=== PATIENT | male | born 1930 | race Caucasian/White ===

== ENCOUNTER 2016-07-06 21:31 | Observation (INO) | payer MEDICARE, OTHER ==
[~2016-07-06] VITALS: Ht 180.3 cm; Wt 75.3 kg
[2016-07-06 22:19] LABS: HEMOGLOBIN 12.5 gm/dl (14.0-17.5); RED BLOOD COUNT 3.92 M/UL (4.20-5.50); WHITE BLOOD COUNT 10.5 K/UL (4.5-11.0)
[2016-07-06 22:38] LABS: BUN/CREATININE RATIO 11 (0-10)
[2016-07-07 07:03] LABS: BUN/CREATININE RATIO 13 (0-10)
[2016-07-07] MEDS ORDERED: CLARITIN 10MG T10 MG PO (10:22)
[2016-07-07] MEDS ORDERED: CITALOPRAM HBR20 MG PO (10:23)
[2016-07-07] MEDS ORDERED: ACTOS45 MG PO (10:32)
[2016-07-07] MEDS ORDERED: DITROPAN XL10 MG PO (10:34)
[2016-07-07] MEDS ORDERED: NAMENDA 5 MG TAB5 MG PO (10:35)
[2016-07-07] MEDS ORDERED: NEURONTIN800 MG PO (10:36)
[2016-07-07] MEDS ORDERED: FENTANYL1 EAC7 TOP (10:40)
[2016-07-07] MEDS ORDERED: GLUCOTROL5 MG PO (10:41)
[2016-07-07] MEDS ORDERED: AMOXICILLIN500 MG PO (10:42)
[2016-07-07] MEDS ORDERED: FLONASE 0.05% N16 GM (10:43)
[2016-07-10] MEDS ORDERED: ASPIR 8181 MG PO (14:01)
[2016-07-10] MEDS ORDERED: LIPITOR TAB 2020 MG PO (14:01)
== END 2016-07-10 15:06 | disposition home or self-care (01) ==
LOC: ER1 21:31 → ZEROF 07-07 00:03 → MED SURG 4 07-07 00:03 → ZEROF 07-07 00:03 → MED SURG 4 07-07 14:50
PROVIDERS: Emergency Medicine; ADMIT Internal Medicine
DX: R47.81 Slurred speech (principal); E87.1 Hypo-osmolality and hyponatremia; E11.9 Type 2 diabetes mellitus without complications; F03.90 Unspecified dementia, unspecified severity, without behavioral disturbance, psychotic disturbance, mood disturbance, and anxiety; M47.816 Spondylosis without myelopathy or radiculopathy, lumbar region; R26.2 Difficulty in walking, not elsewhere classified; Z87.81 Personal history of (healed) traumatic fracture; Z98.49 Cataract extraction status, unspecified eye; Z82.3 Family history of stroke; Z79.899 Other long term (current) drug therapy; W19.XXXA Unspecified fall, initial encounter; Y92.89 Other specified places as the place of occurrence of the external cause
CPT/HCPCS: ECHO; 36415; 70450; 70551; 71010; 80048; 80053; 80061; 81001; 82140; 82550; 82553; 82962; 83036; 83605; 83874; 84443; 84484; 85025; 85610; 85730; 87040; 87086; 92610; 93005; 93306; 93880; 96372; 96374; 97116; 99285; G0378; J1650; J2060; J7030